=== PATIENT | female | born 1955 | race Caucasian/White ===

== ENCOUNTER 2016-04-17 19:47 | Emergency (ER) | payer BC, OTHER ==
[~2016-04-17] VITALS: Ht 170.2 cm; Wt 63.7 kg
[~2016-04-17 19:47] MED LIST: OXYC-360 PO; SYNT25TA OR
[2016-04-17 19:52] VITALS: BP 148/78; PULSE 83; RESP 16; TEMP 97.9; O2SAT 98
[2016-04-17] MEDS ORDERED: LEVO.075 PO (20:13)
--- NOTE | 2016-04-17 20:39 | PD ---
HPI Chief Complaint: Eye Problems/Injury Time Seen by Provider: 20:20 Travel History International Travel<30 days: No Contact w/Intl Traveler<30days: No Traveled to known affect area: No History of Present Illness HPI 61-year-old female presents the emergency department with reports of right visual field "floaters", and she describes a smoker pharynx and her right lateral field. Patient has no history of migraine or trauma. No recent injury or illness. Patient is not diabetic. She does see Dr. Funes has an web marketing strategist. Patient has [facility]. Patient states she has noted these since this morning, with some flashes noted prior to arrival. She has no other complaints. She has no neurological focal complaints. She has no pain in the eye itself. She has no known drug allergies. PFSH Past Medical History Thyroid Disease: Yes (HYPOTHYROID) Tetanus Vaccination: > 5 Years Influenza Vaccination: Yes ?: Not Past Surgical History Other Surgery: Yes (CYST REMOVAL) Social History Alcohol Use: Yes (WINE DAILY) Tobacco Use: No Substance Use: No Allergies-Medications (Allergen,Severity, Reaction): Coded Allergies: No Known Allergies (Unverified , 04/17/16) Reported Meds & Prescriptions Reported Meds & Active Scripts Active Reported Synthroid (Levothyroxine Sodium) 75 Mcg Tab 75 Mcg PO DAILY Review of Systems Except as stated in HPI: all other systems reviewed are Neg General / Constitutional: No: Fever Eyes: Positive: Visual changes, No: Diploplia, Blurred Vision, Photophobia, Drainage, Redness, Foreign Body Sensation, Pain, Tearing HENT: No: Headaches Cardiovascular: No: Chest Pain or Discomfort Respiratory: No: Shortness of Breath Gastrointestinal: No: Abdominal Pain Genitourinary: No: Dysuria Musculoskeletal: No: Pain Skin: No Rash Neurologic: No: Weakness Psychiatric: No: Depression Endocrine: No: Polydipsia Hematologic/Lymphatic: No: Easy Bruising Physical Exam Narrative GENERAL: Patient is in no acute distress. SKIN: Warm and dry. Normal color. Normal turgor. HEAD: Atraumatic. Normocephalic. EYES: Pupils equal and round. No scleral icterus. No injection or drainage. Ophthalmoscopic exam is limited by cataracts on the right. Slit lamp exam performed by Dr. Wylie who sees some floaters in the vitreous as well as possible retinal inflammation suggestive of possible retinal tear. No hemorrhaging noted. ENT: No nasal bleeding or discharge. Mucous membranes pink and moist. NECK: Trachea midline. Neck is supple. CARDIOVASCULAR: Regular rate and rhythm. RESPIRATORY: No accessory muscle use. MUSCULOSKELETAL: Extremities without clubbing, cyanosis, or edema. No obvious deformities. NEUROLOGICAL: Awake and alert. No obvious cranial nerve deficits. Motor grossly within normal limits. Five out of 5 muscle strength in the arms and legs. Normal speech. PSYCHIATRIC: Appropriate mood and affect; insight and judgment normal. Data Data Last Documented VS Vital Signs Date Time Temp Pulse Resp B/P Pulse Ox O2 Delivery O2 Flow Rate FiO2 04/17/16 19:52 97.9 83 16 148/78 98 MDM Medical Decision Making Medical Screen Exam Complete: Yes Emergency Medical Condition: Yes Differential Diagnosis Vitreal floaters. Retinal tear. Visual changes. Narrative Course Patient is medically stable at time of exam. Patient is discussed and seen with Dr. Wylie who performed a slit lamp exam. Call was placed to Dr. Díaz the web marketing strategist on-call, and the patient was discussed. Is no acute treatment necessary at this time. Patient is to follow-up with her web marketing strategist first thing in the morning and if unable to get in with them they can follow with Dr. Díaz's office. Diagnosis Primary Impression: Floaters in visual field Qualified Code: H43.391 - Floaters in visual field, right Additional Impression: Retinal tear of right eye Referrals: Fantasma Díaz (Andi) MD call for appointment Patient Instructions: General Instructions, Visual Floaters (ED) Additional Instructions: Patient is discussed and seen with Dr. Wylie who performed a slit lamp exam. Call was placed to Dr. Díaz the web marketing strategist on-call, and the patient was discussed. Is no acute treatment necessary at this time. Patient is to follow-up with her web marketing strategist, Dr. Cline, first thing in the morning and if unable to get in with them they can follow with Dr. Díaz's office. Med/Other Pt SpecificInfo: No Meds Exist/No RX given Disposition: DISCHARGE HOME Condition: Stable Josue Christensen Apr 17, 2016 20:39
[2016-04-19] MEDS ORDERED: KRIL300C PO (13:33)
[2016-04-19] MEDS ORDERED: COQ1200C PO (13:33)
[2016-04-19] MEDS ORDERED: CALC600T10 PO (13:33)
[2016-04-19] MEDS ORDERED: MULT-10 PO (13:33)
== END 2016-04-17 20:55 | disposition home or self-care (01) ==
LOC: PHEFT 19:47
DX: H43.391 Other vitreous opacities, right eye (principal); H33.311 Horseshoe tear of retina without detachment, right eye; E03.9 Hypothyroidism, unspecified
CPT/HCPCS: 99283

== ENCOUNTER 2016-04-29 08:52 | Emergency (ER) | payer OTHER ==
[~2016-04-29] VITALS: Ht 170.2 cm; Wt 83.0 kg
[~2016-04-29 08:52] MED LIST changes: +CALC600T10 PO; +COQ1200C PO; +KRIL300C PO; +LEVO.075 PO; +MULT-10 PO; -OXYC-360 PO; -SYNT25TA OR
[2016-04-29 08:59] VITALS: BP 146/88; PULSE 83; RESP 15; TEMP 97.3; O2SAT 95
--- NOTE | 2016-04-29 10:04 | PD ---
HPI Chief Complaint: Cold / Flu Symptoms Time Seen by Provider: 09:59 Travel History International Travel<30 days: No Contact w/Intl Traveler<30days: No Traveled to known affect area: No History of Present Illness HPI 61-year-old female with history of seasonal allergies, presents to the ER today because she is having coughing, nasal congestion, sinus pressure over last few weeks and she states that she has been trying several [facility] remedies including Chante-D, nasal saline, and last night had tried to take Flonase. She states that she felt like she was getting increased swelling in her right face especially starting last night to this morning. She states that she thinks she was having a reaction to the Flonase. She denies any lip swelling, tongue swelling, difficulty breathing, rashes, or any other issues. Modifying Factors: None Associated Signs & Symptoms: Right facial swelling, nasal congestion, sinus pressure Risk Factors: None PFSH Past Medical History Respiratory: Yes (seasonal allergies) Thyroid Disease: Yes (HYPOTHYROID) ?: Not Past Surgical History Other Surgery: Yes (CYST REMOVAL, deviated septum) Social History Alcohol Use: Yes (WINE DAILY) Tobacco Use: No Substance Use: No Allergies-Medications (Allergen,Severity, Reaction): Coded Allergies: No Known Allergies (Unverified , 04/29/16) Reported Meds & Prescriptions Reported Meds & Active Scripts Active Reported Calcium + D3 (Calcium Carbonate-Cholecalciferol) 600-200 Mg-Unit Tab 1 Tab PO DAILY Coq10 (Coenzyme Q10 (Ubidecarenone)) 200 Mg Cap 1 Cap PO DAILY Krill Oil 300 Mg Cap 1 Cap PO DAILY Alive Once Daily Womens 5 (Multiple Vitamins W/ Minerals) 1 Tab Tab 1 Tab PO DAILY Synthroid (Levothyroxine Sodium) 75 Mcg Tab 75 Mcg PO DAILY Review of Systems Except as stated in HPI: all other systems reviewed are Neg Physical Exam Narrative GENERAL: Middle age well-developed white female patient in no acute distress. Awake and oriented 3. SKIN: Warm and dry. HEAD: Atraumatic. Normocephalic. EYES: Pupils equal and round. No scleral icterus. No injection or drainage. EARS: Bilateral pinnae and external canals appear within normal limits. Bilateral tympanic membranes without erythema, dullness or perforation. ENT: No nasal bleeding or discharge. Mucous membranes pink and moist. I see no signs of angioedema. Tenderness over the right maxillary sinus. NECK: Trachea midline. No JVD. CARDIOVASCULAR: Regular rate and rhythm. No murmur appreciated. RESPIRATORY: No accessory muscle use. Clear to auscultation. Breath sounds equal bilaterally. GASTROINTESTINAL: Abdomen soft, non-tender, nondistended. Hepatic and splenic margins not palpable. MUSCULOSKELETAL: No obvious deformities. No clubbing. No cyanosis. No edema. NEUROLOGICAL: Awake and alert. No obvious cranial nerve deficits. Motor grossly within normal limits. Normal speech. PSYCHIATRIC: Appropriate mood and affect; insight and judgment normal. Data Data Last Documented VS Vital Signs Date Time Temp Pulse Resp B/P Pulse Ox O2 Delivery O2 Flow Rate FiO2 04/29/16 08:59 97.3 83 15 146/88 95 MDM Medical Decision Making Medical Screen Exam Complete: Yes Emergency Medical Condition: Yes Medical Record Reviewed: Yes Differential Diagnosis Right maxillary sinus area pressure, nasal congestion, coughingseasonal allergies versus sinusitis versus allergic reaction Narrative Course I do not see any signs of angioedema. His symptoms are consistent with a sinus congestion and seasonal allergies. At this point, I have talked to the patient regarding findings and have offered to give her Benadryl. However, the patient states that she responds poorly to Benadryl, states that she gets tachycardia. Considering I do not see any signs of an acute angioedema or obvious allergic reaction and that I think that this may be secondary to sinus congestion, I do not think that the Benadryl is absolutely unnecessary anyways although it may help with the some of her congestion issues. I have recommended Claritin for symptoms. Return for any worsening in discomfort, swelling, or new symptoms as needed. The plan has been discussed with her and she states understanding. Diagnosis Primary Impression: Sinus congestion Additional Impression: Seasonal allergies Disposition: 01 DISCHARGE HOME Condition: Stable Consuelo Herring MD Apr 29, 2016 10:04
== END 2016-04-29 10:16 | disposition home or self-care (01) ==
LOC: PHED 08:52
DX: R09.81 Nasal congestion (principal); J30.2 Other seasonal allergic rhinitis
CPT/HCPCS: 99283

== ENCOUNTER → 2017-03-18 | Outpatient (CLI) | payer OTHER ==
[~2017-03-18] VITALS: Ht 170.2 cm; Wt 68.0 kg
[~2017-03-18] MED LIST changes: +BENZOCAINE 20% ORAL SPR 60 ML CAN OROPHARYNG ONE; +CHLORHEXIDINE GLUCONATE 2 % 1 PACK (2 CLOTHS) TOPICAL PRN; +INSULIN HUMAN REGULAR 1,000 UNITS/10 ML VIAL SQ PRN; +LACTATED RINGER'S 1000 ML IV PRN; +METOPROLOL TARTRATE 25 MG TAB PO PRN; +POVIDONE IODINE 5% (ANTISEPSIS KIT) 4 APPLICATIONS EACH NARE PRN; +SODIUM CHLORID 0.9% 500 ML IV PRN
[2017-03-18 07:50] VITALS: BP 122/74; PULSE 81; RESP 18; TEMP 98.4; O2SAT 99
== END ==
LOC: HSDC 07:05
PROVIDERS: ATTEND Internal Medicine Gastroenterology
DX: R13.10 Dysphagia, unspecified (principal); K21.9 Gastro-esophageal reflux disease without esophagitis
CPT/HCPCS: 91010